=== PATIENT | male | born 1980 | race Caucasian/White ===

== ENCOUNTER 2020-11-04 10:21 | Emergency (ER) | payer MEDICAID, OTHER ==
[~2020-11-04] VITALS: Ht 175.3 cm; Wt 77.1 kg
--- NOTE | 2020-11-04 10:45 | NUR ---
1 to 1 security at the bedside for safety.
--- NOTE | 2020-11-04 11:00 | NUR ---
SECURITY 1:1 AT BEDSIDE PATIENT IN BED
[2020-11-04] MEDS ORDERED: FLUO40CA8 PO (11:06)
[2020-11-04] MEDS ORDERED: CARI350T PO (11:06)
[2020-11-04 11:07] LABS: BASOPHILS % (AUTO) 0.4 % (0.0-2.0); EOSINOPHILS % (AUTO) 0.3 % (0.0-7.0); HEMATOCRIT 39.9 % (36.7-47.1); HEMOGLOBIN 13.2 g/dL (12.5-16.3); LYMPHOCYTES # (AUTO) 2.2 K/uL (20.0-40.0); LYMPHOCYTES % (AUTO) 27.6 % (20.5-51.5); MEAN CORPUSCULAR HEMOGLOBIN 28.3 uug (23.8-33.4); MEAN CORPUSCULAR HGB CONC 33 g/dL (32.5-36.3); MEAN CORPUSCULAR VOLUME 85.8 fL (73.0-96.2); MONOCYTES # (AUTO) 0.9 K/uL (2.0-10.0); NEUTROPHILS # (AUTO) 4.7 K/uL (1.8-8.9); NEUTROPHILS % (AUTO) 59.7 % (38.5-71.5); PLATELET COUNT (AUTO) 284 K/uL (152-348); RED BLOOD CELL COUNT(AUTO) 4.65 MIL/uL (4.06-5.63); WHITE BLOOD COUNT (AUTO) 7.8 K/uL (3.6-10.2)
[2020-11-04 11:13] LABS: CARBON DIOXIDE 26 mmol/L (21-32); CHLORIDE 102 mmol/L (98-107); CREATININE 1.4 mg/dL (0.6-1.3); GLUCOSE 88 mg/dL (74-106); POTASSIUM 4.2 mmol/L (3.5-5.1); UREA NITROGEN, BLOOD 33 mg/dL (7-18)
--- NOTE | 2020-11-04 11:15 | NUR ---
SECURITY 1:1 AT BEDSIDE PATIENT IN BED. NO C/O ANY PAIN.
[2020-11-04 11:19] LABS: ALANINE AMINOTRANSFERASE 44 U/L (16-63); ALKALINE PHOSPHATASE 57 U/L (50-136); ASPARTATE AMINOTRANSFERASE 43 U/L (15-37); BILIRUBIN,DIRECT 0.2 mg/dL (0.0-0.2); BILIRUBIN,TOTAL 0.7 mg/dL (0.2-1.0); TOTAL PROTEIN, SERUM 6.9 g/dL (6.4-8.2)
--- NOTE | 2020-11-04 11:30 | NUR ---
SECURITY 1:1 AT BEDSIDE PATIENT IN BED
[2020-11-04 11:31] LABS: *BILIRUBIN,URIN NEGATIVE (NEGATIVE); *BLOOD, URINE NEGATIVE (NEGATIVE); *CLARITY,URINE CLEAR (CLEAR); *COLOR,URINE YELLOW (YELLOW); *KETONES,URINE 1+ (NEGATIVE); *UROBILINOGEN,URINE 0.2 E.U./dl (NORMAL); LEUKOCYTE ESTERASE ,URINE NEGATIVE (NEGATIVE); NITRITE, URINE NEGATIVE (NEGATIVE); PH,URINE 5.5 (5.0-8.0); UGLUCOSE NEGATIVE (NEGATIVE)
--- NOTE | 2020-11-04 11:45 | NUR ---
SECURITY 1:1 AT BEDSIDE PATIENT IN BED ASLEEP
[2020-11-04 11:54] LABS: ACETAMINOPHEN < 2.0 ug/mL (10-30)
[2020-11-04 12:00] LABS: *AMPHETAMINE, URINE POSITIVE (NEGATIVE); *COCCAINE, URINE NEGATIVE (NEGATIVE)
--- NOTE | 2020-11-04 12:00 | NUR ---
SECURITY 1:1 AT BEDSIDE PATIENT IN BED ASLEEP
[2020-11-04 12:01] LABS: *CANNABINOID, URINE NEGATIVE (NEGATIVE); *OPIATE, URINE POSITIVE (NEGATIVE); *PHENCYCLIDINE SCREEN,URINE NEGATIVE (NEGATIVE)
--- NOTE | 2020-11-04 12:30 | NUR ---
SECURITY 1:1 AT BEDSIDE PATIENT IN BED EATING
--- NOTE | 2020-11-04 12:45 | NUR ---
SECURITY 1:1 AT BEDSIDE PATIENT IN BED EATING
--- NOTE | 2020-11-04 12:50 | NUR ---
PATIENT WAS ASSESSED/EVALUATED BY [facility] STUDENT UNION CONSULTANT.
[2020-11-04 13:09] LABS: ETHANOL < 3 MG/DL (0-0)
--- NOTE | 2020-11-04 13:12 | NUR ---
Merchandise Displayer Consultation 12:45pm: This SW completed the social media marketing analyst consultation via telephone, due to COVID-19 precautions. Patient is a 40 year old male, who is alert, oriented x 4, receptive to speaking with this SW. Patient reports that he came to the ED today for suicidal ideation, stating that he wants to "slit my wrists". Patient reports hx of suicidal thoughts, but did not provide details. Patient denied hx of psychiatric hospitalizations. Patient denied use of psychotropic meds. SW offered patient the option of voluntary psychiatric hospitalization at either [facility] or [facility], and patient stated that he would agree to go to [facility]. SW explored patient's housing situation and other psychosocial needs, and patient stated that he was not homeless, but instead lives with roommates at [address] [place] [address]. Patient denied use of drugs and alcohol, however per patient's ED medical records, patient's toxicology report shows patient tested positive for opiates and amphetamines. Patient denied cigarette use, but then stated that he uses marijuana occasionally. No HI. No hallucinations or delusions. Patient was cooperative with answering this SW's questions, however patient's speech was pressured. Plan: SW spoke with Dr. Perez about social media marketing analyst consultation. Pending medical clearance, this SW to refer patient to [facility] for psychiatric inpatient hospitalization. Dr. Perez is in agreement with the plan.
--- NOTE | 2020-11-04 13:15 | NUR ---
SECURITY 1:1 AT BEDSIDE PATIENT IN BED ASLEEP
--- NOTE | 2020-11-04 13:30 | NUR ---
SECURITY 1:1 AT BEDSIDE PATIENT IN BED WATCHING TV.
--- NOTE | 2020-11-04 13:45 | NUR ---
SECURITY 1:1 AT BEDSIDE PATIENT IN BED WATCHING TV.
--- NOTE | 2020-11-04 14:00 | NUR ---
SECURITY 1:1 AT BEDSIDE PATIENT IN BED
--- NOTE | 2020-11-04 14:22 | NUR ---
Medical clearance received from Dr. Perez, patient has been cleared for psychiatric placement. SW faxed patient's medical records to Mac at [facility], , for review for admission.
--- NOTE | 2020-11-04 15:00 | NUR ---
SECURITY 1:1 AT BEDSIDE PATIENT IN BED WATCHING TV
--- NOTE | 2020-11-04 16:00 | NUR ---
SECURITY 1:1 AT BEDSIDE PATIENT IN BED WATCHING TV
--- NOTE | 2020-11-04 16:51 | NUR ---
[facility] CALL[facility] PATIENT WAS ACCEPTED. CALL [phone] EXT [phone] FOR [address] VICK/ DR FRAGOSO.
--- NOTE | 2020-11-04 16:57 | NUR ---
Mac from [facility] called this SW and informed her that patient has been accepted to [facility] in [place], [address] [place] [address]. RADHA spoke with ED nurse Lalita regarding patient's admission, who stated that patient's nurse Jose is aware of admission and will follow through on providing report and arranging for ambulance transfer for patient.
--- NOTE | 2020-11-04 17:00 | NUR ---
SECURITY 1:1 AT BEDSIDE PATIENT IN BED EATING
--- NOTE | 2020-11-04 17:05 | NUR ---
REPORT GIVE TO SEBAS GOYAL AT [facility].
--- NOTE | 2020-11-04 18:00 | NUR ---
AMBULANCE WAS CALLED FOR TRANSPORT ET [address] TER[address] BRICE AWARE APORRVED TRANSPORT
--- NOTE | 2020-11-04 18:10 | NUR ---
AMBULANCE [facility] WAS CALLED FOR TRANSPORT ET [address] CHRIS BRICE AWARE APORRVED TRANSPORT
--- NOTE | 2020-11-04 21:51 | NUR ---
REPORT GIVEN TO AMBULANCE UNIT 30. PATIENT TRANSFERRED WITH ALL BELONGS GIVEN.
== END 2020-11-04 21:51 ==
LOC: ER 10:21
DX: F32.9 Major depressive disorder, single episode, unspecified (principal); R45.851 Suicidal ideations; Z79.899 Other long term (current) drug therapy; Z20.828 Contact with and (suspected) exposure to other viral communicable diseases
CPT/HCPCS: 36415; 71045; 85025; 93005; A4663; G0480

== ENCOUNTER 2021-06-02 15:26 | Emergency (ER) | payer OTHER ==
[~2021-06-02] VITALS: Ht 175.3 cm; Wt 93.0 kg
[~2021-06-02 15:26] MED LIST: CARI350T PO; FLUO40CA8 PO
[2021-06-02 16:13] LABS: HEMATOCRIT 41.5 % (36.7-47.1); MEAN CORPUSCULAR HEMOGLOBIN 27.6 uug (23.8-33.4); MEAN CORPUSCULAR VOLUME 83.5 fL (73.0-96.2); PLATELET COUNT (AUTO) 306 K/uL (152-348)
[2021-06-02 16:28] LABS: ALANINE AMINOTRANSFERASE 26 U/L (16-63); ALKALINE PHOSPHATASE 54 U/L (50-136); ASPARTATE AMINOTRANSFERASE 20 U/L (15-37); BILIRUBIN,DIRECT 0.1 mg/dL (0.0-0.2); BILIRUBIN,TOTAL 0.4 mg/dL (0.2-1.0); CARBON DIOXIDE 27 mmol/L (21-32); CHLORIDE 100 mmol/L (98-107); CREATININE 1.1 mg/dL (0.6-1.3); GLUCOSE 122 mg/dL (74-106); POTASSIUM 4.4 mmol/L (3.5-5.1); TOTAL PROTEIN, SERUM 7.6 g/dL (6.4-8.2); UREA NITROGEN, BLOOD 15 mg/dL (7-18)
[2021-06-02 16:30] LABS: ACETAMINOPHEN < 2.0 ug/mL (10-30)
[2021-06-02 16:34] LABS: ETHANOL < 3 MG/DL (0-0)
--- NOTE | 2021-06-02 16:40 | NUR ---
Maurice, social and political studies professor at the bedside speaking to pt.
--- NOTE | 2021-06-02 16:54 | NUR ---
Environmental Services Supervisor consultation: Environmental Services Supervisor consultation requested for SI. Patient is a 41 year old male who came to the ED with SI and a plan of wanting to drink alcohol and take aspirin. This BINDERY MACHINE SETTER met with the patient in his assigned ED room. Patient is awake, walking around the ED room, receptive to meeting with this BINDERY MACHINE SETTER. Patient reports SI, stating "i want to drink alcohol, take aspirin, and go to [place] and drown myself". Patient is wearing nothing but boxer shorts, and presents unkempt, however reports that he lives at [address] [place] [address], "in a front house with thousands of people". Patient denies use of drugs or alcohol. Patient reports diagnosis of Depression and Anxiety, and reports hx of psychiatric hospitalizations, but was not able to provide dates and locations. Patient denies hx of suicidal attempts, but reported hx of SI. Voluntary hospitalization at a psychiatric hospital were discussed with the patient, and patient expressed agreement with voluntary psychiatric hospitalization. This BINDERY MACHINE SETTER to fax patient's clinicals to [facility], for possible admission. This BINDERY MACHINE SETTER offered community resources to the patient, and patient refused them, stating "I have a home, I don't need any resources. Throughout this interview, patient observed to be looking around the room and appeared distracted by the television and items throughout the room, however patient denies hallucinations. Patient did appear to be fidgety and with some paranoid thoughts. However patient was cooperative. Dr. Perez was informed of above plan of care, and in agreement.
--- NOTE | 2021-06-02 17:06 | NUR ---
Patient's clinicals (ED Summary report, ED physician's report, face sheet, and COVID test results) faxed to Mac at [facility] for review for admission, fax # [phone]. Toxicology report pending, and will be faxed by nursing once available. This CAR DRYER spoke with Mac who stated that beds are available, and pending review, patient should be able to get transferred to [facility] for voluntary psychiatric admission. VERÓNICA Celis informed of above.
--- NOTE | 2021-06-02 17:07 | NUR ---
Pt resting in bed, watching TV. NAD noted.
--- NOTE | 2021-06-02 17:11 | NUR ---
Received a call from [facility] will call back w/ info for possible volunterary admit.
[2021-06-02 17:15] LABS: *AMPHETAMINE, URINE NEGATIVE (NEGATIVE); *CANNABINOID, URINE NEGATIVE (NEGATIVE); *COCCAINE, URINE NEGATIVE (NEGATIVE); *OPIATE, URINE NEGATIVE (NEGATIVE); *PHENCYCLIDINE SCREEN,URINE NEGATIVE (NEGATIVE)
[2021-06-02 17:17] LABS: *BILIRUBIN,URIN NEGATIVE (NEGATIVE); *BLOOD, URINE NEGATIVE (NEGATIVE); *CLARITY,URINE CLEAR (CLEAR); *COLOR,URINE YELLOW (YELLOW); *KETONES,URINE NEGATIVE (NEGATIVE); *UROBILINOGEN,URINE 0.2 E.U./dl (NORMAL); LEUKOCYTE ESTERASE ,URINE NEGATIVE (NEGATIVE); NITRITE, URINE NEGATIVE (NEGATIVE); UGLUCOSE NEGATIVE (NEGATIVE)
--- NOTE | 2021-06-02 17:32 | NUR ---
Faxed Pt's UDS repot to [facility] intake @ [phone].
[2021-06-02] MEDS ORDERED: IBUPROFEN 600 MG TABLET PO ONE (18:00)
[2021-06-02] MEDS ORDERED: IBUPROFEN 600 MG TABLET ONE (18:05)
--- NOTE | 2021-06-02 18:07 | NUR ---
Dinner provided, pt ate w/ great appetite.
--- NOTE | 2021-06-02 19:15 | NUR ---
Report recieved from VERÓNIAC Celis. Pt. currently resting in bed watching television. Will continue to monitor.
--- NOTE | 2021-06-02 20:54 | NUR ---
Called Mac (w/ [facility] intake) for update on Pt. transfer, left voicemail.
--- NOTE | 2021-06-02 22:09 | NUR ---
[facility] ETA is 45 minutes to transport the pt. [facility].
--- NOTE | 2021-06-02 22:15 | NUR ---
Gave report to VERÓNICA Engle at [facility].
--- NOTE | 2021-06-02 23:15 | NUR ---
Pt. picked up by [facility] ambulance, pt. chart sent with them.
== END 2021-06-02 23:03 ==
LOC: ER 15:27
DX: F32.9 Major depressive disorder, single episode, unspecified (principal); R45.851 Suicidal ideations; F41.9 Anxiety disorder, unspecified; Z79.899 Other long term (current) drug therapy; R00.0 Tachycardia, unspecified; Z20.822 Contact with and (suspected) exposure to COVID-19
CPT/HCPCS: 36415; 71045; 85025; 93005; A4663; G0480

== ENCOUNTER 2021-11-15 19:25 | Emergency (ER) | payer MEDICAID, OTHER ==
[~2021-11-15] VITALS: Ht 172.7 cm; Wt 77.1 kg
[~2021-11-15 19:25] MED LIST changes: -CARI350T PO
--- NOTE | 2021-11-15 20:10 | NUR ---
Pt refusing blood draw, Dr. Banegas notified
[2021-11-15 20:18] LABS: *BILIRUBIN,URIN NEGATIVE (NEGATIVE); *BLOOD, URINE NEGATIVE (NEGATIVE); *CLARITY,URINE CLEAR (CLEAR); *COLOR,URINE YELLOW (YELLOW); *KETONES,URINE 1+ (NEGATIVE); *UROBILINOGEN,URINE 0.2 E.U./dl (NORMAL); LEUKOCYTE ESTERASE ,URINE NEGATIVE (NEGATIVE); NITRITE, URINE NEGATIVE (NEGATIVE); UGLUCOSE NEGATIVE (NEGATIVE)
[2021-11-15 20:24] LABS: *AMPHETAMINE, URINE NEGATIVE (NEGATIVE); *CANNABINOID, URINE NEGATIVE (NEGATIVE); *COCCAINE, URINE NEGATIVE (NEGATIVE); *OPIATE, URINE NEGATIVE (NEGATIVE); *PHENCYCLIDINE SCREEN,URINE NEGATIVE (NEGATIVE)
[2021-11-15 20:45] LABS: HEMATOCRIT 44.6 % (36.7-47.1); MEAN CORPUSCULAR HEMOGLOBIN 27.8 uug (23.8-33.4); MEAN CORPUSCULAR VOLUME 82.8 fL (73.0-96.2); PLATELET COUNT (AUTO) 255 K/uL (152-348)
[2021-11-15 20:53] LABS: POTASSIUM 3.6 mmol/L (3.5-5.1)
--- NOTE | 2021-11-15 22:30 | NUR ---
Pt refusing vital signs
--- NOTE | 2021-11-15 22:36 | NUR ---
CALLED [facility]IS[facility] AND SPOKE WITH MADI "I'LL BE ON MY WAY".
--- NOTE | 2021-11-16 00:27 | NUR ---
Pt still refusing vital signs
[2021-11-16 01:48] VITALS: BP 148/89
--- NOTE | 2021-11-16 01:48 | NUR ---
Pt states he is not suicidal
[2021-11-16] MEDS ORDERED: LORA-259 PO (06:08)
== END 2021-11-16 01:49 | disposition home or self-care (01) ==
LOC: ER 19:32
DX: I10 Essential (primary) hypertension (principal); R45.851 Suicidal ideations; F32.A Depression, unspecified; Z79.899 Other long term (current) drug therapy; Z20.822 Contact with and (suspected) exposure to COVID-19
CPT/HCPCS: 36415; 71045; 83735; 85025; 93005; A4663

== ENCOUNTER 2021-11-16 04:52 | Emergency (ER) | payer MEDICAID ==
[~2021-11-16] VITALS: Ht 172.7 cm; Wt 77.1 kg
[2021-11-16] MEDS: LORAZEPAM 0.5 MG TABLET PO ONE (05:09)
[2021-11-16] MEDS ORDERED: LORAZEPAM 1 MG TABLET ONE (05:15)
[2021-11-16] MEDS ORDERED: LORA-259 PO (06:08)
--- NOTE | 2021-11-16 06:20 | NUR ---
Patient discharged to home in stable condition. Written and verbal after care instructions given. Patient verbalizes understanding of instructions. Stressed follow up or return to ER for worsening s/s.
[2021-11-16 06:21] VITALS: BP 157/65
== END 2021-11-16 06:21 | disposition home or self-care (01) ==
LOC: ER 04:55
DX: I10 Essential (primary) hypertension (principal); F41.9 Anxiety disorder, unspecified; F32.A Depression, unspecified; Z79.899 Other long term (current) drug therapy
CPT/HCPCS: A4663

== ENCOUNTER 2022-04-27 06:03 | Emergency (ER) | payer MEDICAID ==
[~2022-04-27] VITALS: Ht 172.7 cm; Wt 63.5 kg
[~2022-04-27 06:03] MED LIST changes: +LORA-259 PO
[2022-04-27 06:41] LABS: MEAN CORPUSCULAR HEMOGLOBIN 26.6 uug (23.8-33.4); MEAN CORPUSCULAR VOLUME 79.9 fL (73.0-96.2); PLATELET COUNT (AUTO) 310 K/uL (152-348)
[2022-04-27] MEDS ORDERED: LORAZEPAM 2 MG/1 ML VIAL ONE ×2 (06:52→07:02)
[2022-04-27] MEDS ORDERED: OLANZAPINE 10 MG VIAL IM ONE ×2 (06:52→07:00)
[2022-04-27 06:56] LABS: ETHANOL < 3 MG/DL (0-0)
[2022-04-27 06:56] LABS: *BILIRUBIN,URIN NEGATIVE (NEGATIVE); *BLOOD, URINE NEGATIVE (NEGATIVE); *CLARITY,URINE CLEAR (CLEAR); *COLOR,URINE YELLOW (YELLOW); *KETONES,URINE NEGATIVE (NEGATIVE); *UROBILINOGEN,URINE 0.2 E.U./dl (NORMAL); LEUKOCYTE ESTERASE ,URINE NEGATIVE (NEGATIVE); NITRITE, URINE NEGATIVE (NEGATIVE); UGLUCOSE NEGATIVE (NEGATIVE)
[2022-04-27] MEDS ORDERED: LORAZEPAM 2 MG/1 ML VIAL IM ONE (07:00)
[2022-04-27 07:08] LABS: THYROID STIMULATING HORMONE 2.359 mIU/mL (0.358-3.740)
[2022-04-27 07:11] LABS: ALANINE AMINOTRANSFERASE 25 U/L (16-63); ALKALINE PHOSPHATASE 53 U/L (50-136); ASPARTATE AMINOTRANSFERASE 22 U/L (15-37); BILIRUBIN,DIRECT 0.1 mg/dL (0.0-0.2); BILIRUBIN,TOTAL 0.2 mg/dL (0.2-1.0); CARBON DIOXIDE 28 mmol/L (21-32); CHLORIDE 98 mmol/L (98-107); GLUCOSE 76 mg/dL (74-106); POTASSIUM 3.7 mmol/L (3.5-5.1); TOTAL PROTEIN, SERUM 6.8 g/dL (6.4-8.2); UREA NITROGEN, BLOOD 17 mg/dL (7-18)
[2022-04-27 07:12] LABS: *AMPHETAMINE, URINE NEGATIVE (NEGATIVE); *CANNABINOID, URINE NEGATIVE (NEGATIVE); *COCCAINE, URINE NEGATIVE (NEGATIVE); *OPIATE, URINE NEGATIVE (NEGATIVE); *PHENCYCLIDINE SCREEN,URINE NEGATIVE (NEGATIVE)
[2022-04-27 07:15] LABS: ACETAMINOPHEN < 2.0 ug/mL (10-30)
--- NOTE | 2022-04-27 07:40 | NUR ---
Pt is medically cleared to be admited psych.
--- NOTE | 2022-04-27 08:00 | NUR ---
Pt. resting in bed, no complaints, no distress noted. Gave pt sandwich and juice.
--- NOTE | 2022-04-27 08:27 | NUR ---
refaxed pt chart to [facility] -- intake.
--- NOTE | 2022-04-27 08:46 | NUR ---
Gave pt breakfast tray and another sandwich.
--- NOTE | 2022-04-27 10:57 | NUR ---
[facility]. Called back and is accepting patient, after 1500. Admitting: Dr. Harding Report to: VERÓNICA Minor at -- call after 1430
--- NOTE | 2022-04-27 11:06 | NUR ---
[facility] [id number] pick-up.
[2022-04-27] MEDS ORDERED: KETOROLAC TROMETHAMINE 15 MG INJ ONE (15:05)
[2022-04-27] MEDS ORDERED: ACETAMINOPHEN 325 MG TABLET ONE (15:11)
[2022-04-27] MEDS ORDERED: KETOROLAC TROMETHAMINE 15 MG INJ IM ONE (15:15)
[2022-04-27] MEDS ORDERED: ACETAMINOPHEN 325 MG TABLET PO ONE (15:15)
--- NOTE | 2022-04-27 15:28 | NUR ---
Gave report and pt chart to EMT's. Called [facility] Marino Nguyen to give report. Staff is not taking report.
--- NOTE | 2022-04-27 16:22 | NUR ---
Attempted to call report to [facility], no answer.
== END 2022-04-27 15:35 ==
LOC: ER 06:04
DX: R45.851 Suicidal ideations (principal); F41.9 Anxiety disorder, unspecified; Z20.822 Contact with and (suspected) exposure to COVID-19; F22 Delusional disorders; Z59.00 Homelessness unspecified
CPT/HCPCS: 36415; 80048; 80076; 80299; 80307; 80320; 81003; 84443; 85025; 87426; 96372 ×2; 99285; J2060 ×2; A4663; G0480; J1885; J2358